=== PATIENT | female | born 1990 | race Hispanic/Latino ===

== ENCOUNTER 2018-04-19 08:07 | Outpatient (CLI) | payer OTHER ==
--- NOTE | 2018-04-20 10:10 | NM ---
RADIOIODINE THYROID UPTAKE AND SCAN: HISTORY: Hyperthyroidism, low TSH RADIOPHARMACEUTICAL: 254 microcuries Iodine-123 administered orally. FINDINGS: Planar anterior and both anterior oblique images of the thyroid gland demonstrate fairly homogeneous tracer distribution to both lobes of the thyroid gland. No focal hot or cold nodules are seen. The 24 hour uptake measures 37% (normal 10-30%). IMPRESSION: Findings are consistent with hyperthyroid Graves' disease. POS: [facility]
== END 2018-04-19 08:08 | disposition home or self-care (01) ==
LOC: NM 08:07
PROVIDERS: ATTEND Family Medicine
DX: E05.90 Thyrotoxicosis, unspecified without thyrotoxic crisis or storm (principal)
CPT/HCPCS: 78014; A9516

== ENCOUNTER 2018-07-07 12:04 | Outpatient (CLI) | payer OTHER ==
[2018-07-07 12:41] LABS: BHCG - Serum Negative (NEGATIVE); Pregs Control Background? CLEAR/WHITE (CLR/WHITE); Pregs Control Bar Appear? YES (CONTROL BAR)
--- NOTE | 2018-07-07 14:05 | NM ---
RADIOIODINE (I-131) THERAPY: 07/07/2018 HISTORY: Patient with thyrotoxicosis/hyperthyroidism secondary to Graves disease. I-131 therapy was requested . FINDINGS: Prior imaging study on 04/20/2018 demonstrated increased uptake of radiotracer within each lobe of th e thyroid gland, with elevated 6 and 24 hour uptake values. The I-131 treatment for hyperthyroidism/Graves disease was discussed with the patient, at length, by the radiation technologist, as well as myself. The patient was counseled on reason for I-131 treatme nt and the precautionary measures to take after I-131 therapy. Precautionary measures to comply with were also given to the patient. The patient verbally agreed to proceed with I-131 treatment. The patient was administered 11.33 millicuries of I-131 p.o. The patient was briefly monitored and t hen discharged in stable condition. IMPRESSION: Successful radioiodine (I-131) therapy. 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 POS: [facility]
== END 2018-07-07 12:05 | disposition home or self-care (01) ==
LOC: NM 12:04
PROVIDERS: ATTEND Internal Medicine
DX: Z32.00 Encounter for pregnancy test, result unknown (principal); E05.00 Thyrotoxicosis with diffuse goiter without thyrotoxic crisis or storm
CPT/HCPCS: 36415; 79005; 84703; A9517